=== PATIENT | female | born 1955 | race Caucasian/White ===

== ENCOUNTER 2024-08-18 14:39 | Outpatient (REF) | payer MEDICARE, SELFPAY ==
--- NOTE | ~2024-08-18 | US_ITS ---
EXAMINATION: US TRIPLEX LOWER EXTREMITY, RIGHT CLINICAL INFORMATION: DVT vein procedure. Venous ablation. Leg pain. Rule out DVT. COMPARISON: None available. TECHNIQUE: Color-flow triplex imaging with spectral analysis and compression Doppler were performed on the right lower extremity. FINDINGS: Respiratory variation, normal compression and augmented flow are noted throughout the right lower extremity. The visualized common femoral vein, superficial femoral vein, profunda femoral vein, popliteal vein and midcalf peroneal and posterior tibial venous segments show no evidence of deep venous thrombosis. There is no flow seen in the right SSV status post venaseal procedure in midcalf. There is no Beal's cyst. Incidental finding of right groin lymph node measuring 2.2 x 0.7 x 4.5 cm. US/US venous duplex LE RT IMPRESSION: No evidence of deep venous thrombosis involving the right lower extremity. Electronically signed by: Rainer Jackson MD 08/18/2024 03:59 PM EST
== END 2024-08-18 14:40 | disposition home or self-care (01) ==
LOC: HO.HMGCX 14:39
PROVIDERS: PCP Physician Assistant; Visit Provider Student in an Organized Health Care Education/Training Program
DX: I82.401 Acute embolism and thrombosis of unspecified deep veins of right lower extremity (principal)
CPT/HCPCS: 93971

== ENCOUNTER → 2024-08-18 14:43 | Outpatient (BNV) | payer MEDICARE, SELFPAY | PROVIDERS: PCP Physician Assistant; Visit Provider Radiology Diagnostic Radiology | DX: M79.604 Pain in right leg (principal) | CPT/HCPCS: 93971 ==